=== PATIENT | female | born 1970 | race Caucasian/White ===

== ENCOUNTER 2017-05-19 19:00 | Emergency (ER) | payer OTHER ==
[2017-05-19 19:09] VITALS: BP 145/97; PULSE 89; RESP 18; TEMP 98.3; O2SAT 98
--- NOTE | 2017-05-19 19:54 | ED PDOC ---
HPI: Chest Pain Time Seen by Provider: 05/19/17 19:15 Chief Complaint (Nursing): Chest Pain Chief Complaint (Provider): Left Sided Chest Tightness and Shortness of Breath History Per: Patient History/Exam Limitations: no limitations Onset/Duration Of Symptoms: Days Current Symptoms Are (Timing): Still Present Additional Complaint(s): Wendi Marvin, a 46 year old female, with a past medical history of lupus, presents to the ED for progressive left side chest tightness and shortness of breath she has been experiencing for 5 days. 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 She states that the tightness starts in the middle of her chest and radiates to her left shoulder and upper back. The patient states that she spoke to Dr Baird who prompted her to come into the ED for further evaluation. PMD: David Islas Past Medical History Reviewed: Historical Data, Nursing Documentation, Vital Signs Vital Signs: Last Vital Signs Temp 98.3 F 05/19/17 19:02 Pulse 89 05/19/17 19:02 Resp 18 05/19/17 19:02 BP 145/97 H 05/19/17 19:02 Pulse Ox 98 05/20/17 00:41 - Medical History PMH: No Chronic Diseases - Surgical History Surgical History: No Surg Hx - Family History Family History: States: Unknown Family Hx - Home Medications Home Medications: Ambulatory Orders Medication Instructions Recorded Lorazepam [Ativan] 1 mg PO TID PRN #12 tab 05/20/17 - Allergies Allergies/Adverse Reactions: Allergies Allergy/AdvReac Type Severity Reaction Status Date / Time No Known Allergies Allergy Unverified 06/19/14 18:25 Review of Systems ROS Statement: Except As Marked, All Systems Reviewed And Found Negative Cardiovascular: Negative for: Chest Pain (left sided chest tightness) Respiratory: Positive for: Shortness of Breath Musculoskeletal: Positive for: Back Pain (left upper back pain) Physical Exam - Reviewed Nursing Documentation Reviewed: Yes Vital Signs Reviewed: Yes - Physical Exam Appears: Positive for: Non-toxic, No Acute Distress Head Exam: Positive for: ATRAUMATIC, NORMAL INSPECTION, NORMOCEPHALIC Skin: Positive for: Normal Color, Warm, Dry. Negative for: Rash Eye Exam: Positive for: Normal appearance, EOMI, PERRL. Negative for: Nystagmus Neck: Positive for: Normal, Painless ROM, Supple Cardiovascular/Chest: Positive for: Regular Rate, Rhythm, Chest Non Tender. Negative for: Tachycardia Respiratory: Positive for: Normal Breath Sounds. Negative for: Rales, Rhonchi, Wheezing, Respiratory Distress Gastrointestinal/Abdominal: Positive for: Normal Exam, Bowel Sounds, Soft. Negative for: Tenderness, Guarding, Rebound Back: Positive for: Normal Inspection. Negative for: L CVA Tenderness, R CVA Tenderness Extremity: Positive for: Normal ROM. Negative for: Tenderness, Deformity, Swelling Neurologic/Psych: Positive for: Alert, Oriented, Gait - Laboratory Results Result Diagrams: 05/19/17 19:58 05/19/17 19:58 - ECG O2 Sat by Pulse Oximetry: 98 (RA) Pulse Ox Interpretation: Normal Medical Decision Making Medical Decision Makin Initial Impression: rule out pulmonary embolism, possibly musculoskeletal pain Initial Plan: * EKG * BMP * Troponin * CBC * D-dimer * Partial * Thromboplastin * Prothrombin * Time * Chest x-ray * Toradol 15mg IVP * Urinalysis * Reevaluation Time: 37 --CTA chest FINDINGS: Pulmonary arteries: No evidence of acute pulmonary embolism up to the major segmental level.One or more very small peripheral pulmonary emboli cannot be excluded. Correlate clinically. Aorta: No acute findings. No thoracic aortic aneurysm. Lungs: 4 mm nodule in the left lower lobe. Small bulla noted in the right middle lobe. Pleural space: Unremarkable. No significant effusion. No pneumothorax. Heart: Unremarkable. No cardiomegaly. No significant pericardial effusion. No evidence of RV dysfunction. Bones/joints: Spondylosis. No acute fracture. No dislocation. Soft tissues: Unremarkable. Lymph nodes: No enlarged lymph nodes. Liver: There are hypodensities in the liver that cannot be accurately characterized on this single phase current examination. Adrenals: Bilateral adrenal thickening. Small hiatal hernia. IMPRESSION: 1. No evidence of acute pulmonary embolism up to the major segmental level.One or more very small peripheral pulmonary emboli cannot be excluded. Correlate clinically. 2. 4 mm nodule in the left lower lobe. The remainder of the findings are as described above. 0030 Pt. aware of pulm nodule. Results given. Told to f/u prisca/ Brie for further testing. Return precautions given. Pt. states she feels her symptoms are possibly related to anxiety and that she has had stress recently, no SI/HI. Asked for relaxation medications, risks/benefits/side effects/potential for addiction all discussed with patient who agrees to use medication only as needed and not to abuse. [employer] searched- no controlled substances in system. Will d/c home. Scribe Attestation Documented by Nishi Pettit acting as a scribe for Baron Irene MD. Provider Attestation: All medical record entries made by the Scribe were at my direction and personally dictated by me. I have reviewed the chart and agree that the record accurately reflects my personal performance of the history, physical exam, medical decision making, and the department course for this patient. I have also personally directed, reviewed, and agree with the discharge instructions and disposition. Disposition - Clinical Impression Clinical Impression: Chest pain - Disposition Referrals: David Baird MD [Family Provider] - Disposition: Routine/Home Disposition Time: 00:30 Condition: STABLE Prescriptions: Lorazepam [Ativan] 1 mg PO TID PRN #12 tab PRN Reason: Anxiety Instructions: Dyspnea (GEN), Noncardiac Chest Pain (ED), Anxiety (ED) Forms: [facility] (Mexican), [facility] ED School/Work Excuse
[2017-05-19 20:01] LABS: BASO % 0.3 % (0.0-2.0); EOS # 0.1 K/uL (0.0-0.7); HEMATOCRIT 41.7 % (34.0-47.0); LYMPH % 32.4 % (20.0-40.0); MEAN CELL VOLUME 84.4 fl (81.0-99.0); MEAN CORPUSCULAR HEMOGLOBIN 26.9 pg (27.0-31.0); MEAN CORPUSCULAR HGB CONC 31.9 g/dL (33.0-37.0); MEAN PLATELET VOLUME 8.8 fl (7.2-11.7); MONO # 0.5 K/uL (0.0-0.8); MONO % 7.5 % (0.0-10.0); NEUT # 3.6 K/uL (1.8-7.0); NEUT % 58.8 % (50.0-75.0); NRBC % 0.1 % (0.0-0.0); RED CELL DISTRIBUTION WIDTH 13.7 % (11.5-14.5); WHITE BLOOD COUNT 6.1 K/uL (4.8-10.8)
[2017-05-19 20:13] LABS: BLOOD UREA NITROGEN 10 mg/dl (7-17); CALCIUM 9.1 mg/dL (8.4-10.2); CARBON DIOXIDE 25 mmol/L (22-30); CHLORIDE 105 mmol/L (98-107); GFR AFRICAN-AMERICAN > 60; GLUCOSE,RANDOM 88 mg/dL (65-105); SODIUM 139 mmol/l (132-148)
[2017-05-19 20:15] LABS: POTASSIUM 3.6 MMOL/L (3.6-5.0)
[2017-05-19 20:21] LABS: PARTIAL THROMBOPLASTIN TIME 28.2 Seconds (25.6-37.1)
[2017-05-19 20:23] LABS: URINE BACTERIA RARE (<OCC); URINE BILIRUBIN NEGATIVE (NEGATIVE); URINE BLOOD SMALL (NEGATIVE); URINE COLOR YELLOW (YELLOW); URINE GLUCOSE (UA) NEG (Normal); URINE KETONE NEGATIVE (NEGATIVE); URINE LEUKOCYTE ESTERASE MOD Leu/uL (Negative); URINE PROTEIN NEGATIVE (NEGATIVE); URINE UROBILINOGEN 0.2-1.0 mg/dL (0.2-1.0); WBC URINE 13 /hpf (0-5)
[2017-05-19 20:24] LABS: RBC URINE 10 /hpf (0-3)
[2017-05-19] MEDS ORDERED: Iodixanol 320 MG/ML 100 ML BOTTLE IV ONE (21:24)
[2017-05-19] MEDS ORDERED: Sodium Chloride 0.9% 50 ML IV ONE (21:25)
--- NOTE | 2017-05-20 09:33 | CT ---
CTA chest PE protocol Indication: Rule out PE Technique: Contiguous axial images were obtained through the chest with intravenous contrast enhancement. Sagittal and coronal reconstructions were generated and reviewed. This CT exam was performed using 1 or more of the falling dose reduction techniques: Automated exposure control, adjustment of the MAA and/or kV according to patient size, and/or use of iterative reconstruction technique. IV Contrast: 80 mL Visipaque 320 Radiation dose (DLP): 382.99 MGy-cm. Comparison: Chest x-ray performed 05/19/17 Findings: Visualized portions of the inferior thyroid gland appear unremarkable. The mediastinal and hilar vascular structures appear unremarkable except for aberrant left subclavian vein, anatomic variant. The heart appears within normal limits of size. No large central or segmental pulmonary embolus evident. Small bulla, right middle lobe. No focal consolidation. No pleural effusion. No pneumothorax. Left lower lobe nodule measures approximately 4 mm. Limited visualized portions of the upper abdomen demonstrate hepatic hypodensities which are incompletely assessed on this single phase study. Bilateral adrenal gland hypertrophy. No acute osseous abnormality is detected. Impression: No large central or segmental pulmonary embolus identified. 4 mm left lower lobe pulmonary nodule. In the absence of risk factors for lung cancer, no specific imaging follow-up is required. If the patient is a smoker or has other risk factors, follow-up CT at 12 months is recommended to document stability. Limited visualized portions of the upper abdomen demonstrate hepatic hypodensities which are incompletely assessed on this single phase study. Bilateral adrenal gland hypertrophy. Preliminary impression was provided by virtual radiologic.
--- NOTE | 2017-05-20 10:26 | RAD ---
HISTORY: hx of lupus, cp, sob COMPARISON: No prior. TECHNIQUE: Chest PA and lateral FINDINGS: Examination limited by habitus. LUNGS: No focal consolidation. Please note that chest x-ray has limited sensitivity for the detection of pulmonary masses. PLEURA: No significant pleural effusion identified. No definite pneumothorax . CARDIOVASCULAR: The cardiomediastinal silhouette appears within normal limits of size. OSSEOUS STRUCTURES: No acute osseous abnormality identified. VISUALIZED UPPER ABDOMEN: Unremarkable. OTHER FINDINGS: None. IMPRESSION: No focal consolidation, significant pleural effusion, or definite pneumothorax identified.
--- NOTE | 2017-05-20 23:08 | CARD ---
APPROVED REPORT EKG Measurement Heart [id number] <Conclusion> Normal sinus rhythm Normal ECG
== END 2017-05-19 23:30 | disposition home or self-care (01) ==
LOC: H.ER 19:00
DX: R07.89 Other chest pain (principal)
CPT/HCPCS: 71020; 71275; 80048; 81003; 81025; 84484; 85025; 85378; 85610; 85730; 93005; 96374; 99284; J1885; Q9967